=== PATIENT | male | born 2005 | race Two or more races ===

== ENCOUNTER 2024-05-09 16:57 | Emergency (ER) | payer OTHER ==
[~2024-05-09] VITALS: Ht 180.3 cm; Wt 84.8 kg
[2024-05-09 18:45] VITALS: BP 121/65; TEMP 98.3; O2SAT 100
[2024-05-09] MEDS ORDERED: SIME180C35 PO (19:06)
== END 2024-05-09 19:11 | disposition home or self-care (01) ==
LOC: ER 17:02
DX: R14.0 Abdominal distension (gaseous) (principal)